=== PATIENT | female | born 1945 | race Caucasian/White ===

== ENCOUNTER 2018-02-18 08:15 | Day surgery (SDC) | payer MEDICARE ==
[2018-02-15 12:20] VITALS: BMI 25.9
[2018-02-18 08:30] VITALS: TEMP 98.3
[2018-02-18] MEDS ORDERED: FLURBIPROFEN 0.03% OPHTH SOLN 2.5 ML BOTTLE ONE (09:30)
[2018-02-18] MEDS ORDERED: FLURBIPROFEN 0.03% OPHTH SOLN 2.5 ML BOTTLE OS ONE ×3 (09:40→09:50)
[2018-02-18] MEDS ORDERED: FLURBIPROFEN 0.03% OPHTH SOLN 2.5 ML BOTTLE OS SCH (10:00)
[2018-02-18] MEDS ORDERED: MIDAZOLAM HCL 2 MG/2 ML SINGLE DOSE VIAL ONE (10:16)
[2018-02-18] MEDS ORDERED: TETRACAINE 0.5% OPHTH SOLN 2 ML BOTTLE OS ONE (10:40)
[2018-02-18] MEDS ORDERED: NEO/POLYMYX B SULF/DEXAMETH OPHTHALMIC OINTMENT 3.5 GM ONE (10:47)
[2018-02-18] MEDS ORDERED: LIDOCAINE HCL/PF 1% SDV 5ML VIAL ONE (10:47)
[2018-02-18] MEDS ORDERED: BSS (NA/CA/MG/K) BALANCED SALT SOLUTION OPHTH SOLN 15 ML BOTTLE ONE (10:47)
[2018-02-18] MEDS ORDERED: POVIDONE-IODINE 5% OPHTHALMIC PREP 30 ML SOLUTION OS ONE (11:09)
[2018-02-18] MEDS ORDERED: LIDOCAINE 1%/EPI 1:100000 (20 ML MULTI DOSE VIAL) IJ ONE (11:15)
[2018-02-18] MEDS ORDERED: BSS (NA/CA/MG/K) BALANCED SALT SOLUTION OPHTH SOLN 15 ML BOTTLE OS ONE (11:15)
[2018-02-18 12:56] VITALS: BP 114/84; PULSE 50
--- NOTE | 2018-02-18 13:24 | OP ---
DATE OF OPERATION: 02/18/2018 SURGEON: Myrna Calles MD ANESTHESIA: Local. PROCEDURE: Pterygium excision, left eye, nasal side with AmnioGraft using Tisseel glue. ANESTHESIA: Local. PREOPERATIVE DIAGNOSIS: Pterygium. DESCRIPTION OF PROCEDURE: The left eye was prepped and draped in the usual sterile fashion for ophthalmic surgery, and tetracycline eye drops were placed in the eye. The microscope was swung into position, and the pterygium head and body was marked with a surface marker. Careful dissection at the head of the pterygium from the cornea was done with a 57 blade, and excision of the body was done with the scissors. The specimen was sent for histopathology. Hemostasis was achieved after smoothing the surface of the cornea with a jayson blade. The measurements of other sclerae were 6 mm x 5 mm, and at this size, the AmnioGraft was carefully excised and placed on the sclerae using Tisseel glue. The graft was found to be in situ, and Tobradex eye ointment was placed on the conjunctivae, and the eye was patched and shielded. The patient was transferred to the recovery room in a stable condition having tolerated the procedure well. MYRNA CALLES M.D. /[id number]
--- NOTE | 2018-02-19 15:52 | PATH ---
Surgical Pathology Report Patient Name: AYSHA EL [facility]. Rec. #: [id number] /Age/Gender: 1945 (Age: 72) / F Account: [id number] Location: [facility] SURGICAL Taken: 02/18/2018 Received: 02/18/2018 Reported: 02/19/2018 Physicians: Naila Ware M.D. Specimen(s) Received LEFT EYE PTERYGIUM Clinical History Left eye pterygium Final Diagnosis LEFT EYE, PTERYGIUM, EXCISION: CONSISTENT WITH PTERYGIUM. Electronically Signed Cristina Acharya M.D. Gross Description Received in formalin, labeled "left eye pterygium" is a benítez, irregular portion of soft tissue measuring 0.2 cm. in greatest dimension. The specimen is submitted in toto in one cassette. /02/18/201802/18/2018
== END 2018-02-18 13:05 | disposition home or self-care (01) ==
LOC: JASU-SURG 08:15
PROVIDERS: ATTEND Ophthalmology
PROC: 08U107Z Supplement of Left Eye with Autologous Tissue Substitute, Open Approach (ICD-10-PCS; principal; 2018-02-18 10:00)
DX: H11.002 Unspecified pterygium of left eye (principal)
CPT/HCPCS: 88304-TC

== ENCOUNTER 2024-08-01 03:13 | Inpatient (IN) | payer MEDICARE, OTHER ==
[2024-08-01] MEDS ORDERED: dilTIAZem HCL 125 MG/25 ML - 25 ML VIAL ONE (03:56)
[2024-08-01] MEDS: dilTIAZem HCL 50 MG/10 ML - 10 ML VIAL IVPUSH ONE (04:01)
[2024-08-01] MEDS: SODIUM CHLORIDE 0.9% 500 ML INFUS.BAG IV ONE (04:01)
[2024-08-01 04:38] LABS: INR 0.99 (0.83-1.09); PROTHROMBIN TIME (PATIENT) 11.2 SEC (9.7-13.0)
[2024-08-01 04:41] LABS: ACTIVATED PTT 27.9 SECONDS (25.2-36.5)
[2024-08-01 04:50] LABS: POTASSIUM 4.7 mmol/L (3.5-5.1)
[2024-08-01 04:52] LABS: CALCIUM 9.2 mg/dL (8.5-10.1)
[2024-08-01 04:53] LABS: ALBUMIN 3.6 g/dl (3.4-5.0); BLOOD UREA NITROGEN 26.1 mg/dL (7-18); MAGNESIUM 2.1 mg/dL (1.8-2.4)
[2024-08-01 04:56] LABS: CREATININE 1.1 mg/dL (0.55-1.3); PHOSPHOROUS 3.5 mg/dL (2.5-4.9)
[2024-08-01 04:58] LABS: BILIRUBIN,TOTAL 0.4 mg/dL (0.2-1); TOT PROT 6.9 g/dl (6.4-8.2)
[2024-08-01 04:59] LABS: N-TERMINAL BNP 183.8 pg/ml (5-450)
[2024-08-01] MEDS: dilTIAZem HCL 30 MG TABLET PO ONE (05:06)
[2024-08-01 05:52] LABS: BASO % 0.2 % (0-2.0); HEMATOCRIT 36.7 % (32.4-45.2); HEMOGLOBIN 12.5 GM/dL (10.7-15.3); LYMPH % 10.7 % (8-40); MCH 32.6 pg (25.7-33.7); MCHC 34.2 g/dl (32.0-36.0); MEAN CELL VOLUME 95.3 fl (80-96); MONO % 6.7 % (3.8-10.2); NEUT % 82.4 % (42.8-82.8); PLATELET COUNT 356 10^3/uL (134-434); RBC 3.85 M/mm3 (3.60-5.2); RDW 12.2 % (11.6-15.6); WHITE BLOOD COUNT 9.6 K/mm3 (4.0-10.0)
[2024-08-01] MEDS ORDERED: LEVOTHYROXINE NA 25 MCG TABLET (FP) ONE (07:10)
[2024-08-01] MEDS: INSULIN ASPART SLIDING SCALE (NOVOLOG) 1 VIAL SQ SCH (07:12)
[2024-08-01] MEDS: LEVOTHYROXINE NA 25 MCG TABLET (FP) PO SCH (07:16)
[2024-08-01 07:42] LABS: POTASSIUM 4.7 mmol/L (3.5-5.1)
[2024-08-01 07:44] LABS: CALCIUM 8.3 mg/dL (8.5-10.1)
[2024-08-01 07:45] LABS: ALBUMIN 3.4 g/dl (3.4-5.0); BLOOD UREA NITROGEN 24.8 mg/dL (7-18); MAGNESIUM 1.9 mg/dL (1.8-2.4)
[2024-08-01 07:48] LABS: CREATININE 0.9 mg/dL (0.55-1.3); HEMATOCRIT 38.3 % (32.4-45.2); MEAN CELL VOLUME 97.1 fl (80-96); MEAN PLT VOLUME 8.3 fl (7.5-11.1); PHOSPHOROUS 3.1 mg/dL (2.5-4.9); PLATELET COUNT 262 10^3/uL (134-434); RBC 3.95 M/mm3 (3.60-5.2); RDW 12.3 % (11.6-15.6); WHITE BLOOD COUNT 9.4 K/mm3 (4.0-10.0)
[2024-08-01 07:50] LABS: BILIRUBIN,TOTAL 0.5 mg/dL (0.2-1); TOT PROT 6.5 g/dl (6.4-8.2)
[2024-08-01] MEDS ORDERED: METOPROLOL TARTRATE 25 MG TABLET (FP) ONE (08:54)
[2024-08-01] MEDS: METOPROLOL TARTRATE 25 MG TABLET (FP) PO SCH (09:01)
[2024-08-01] MEDS ORDERED: METOPROLOL TARTRATE 50 MG TABLET (FP) PO SCH (10:00)
[2024-08-01] MEDS: APIXABAN 5 MG TABLET PO SCH (11:22)
[2024-08-01] MEDS: METOPROLOL TARTRATE 50 MG TABLET (FP) PO SCH (14:16)
[2024-08-01 16:09] VITALS: BMI 25.6
[2024-08-01] MEDS: FLU VACCINE (FLULAVAL) PF 45 MCG/0.5 ML SYRINGE 2024-2025 IM ONE (19:24)
[2024-08-01] MEDS: ATORVASTATIN CA 10 MG TABLET (FP) PO SCH (21:55)
[2024-08-01 22:52] VITALS: RESP 18
[2024-08-02 07:44] LABS: HEMATOCRIT 37.3 % (32.4-45.2); HEMOGLOBIN 12.1 GM/dL (10.7-15.3); MCH 31.9 pg (25.7-33.7); MCHC 32.4 g/dl (32.0-36.0); MEAN CELL VOLUME 98.5 fl (80-96); MEAN PLT VOLUME 8.3 fl (7.5-11.1); PLATELET COUNT 333 10^3/uL (134-434); RBC 3.78 M/mm3 (3.60-5.2); RDW 12.3 % (11.6-15.6); WHITE BLOOD COUNT 8.1 K/mm3 (4.0-10.0)
[2024-08-02 07:59] LABS: POTASSIUM 4.7 mmol/L (3.5-5.1)
[2024-08-02 08:01] LABS: CALCIUM 9.2 mg/dL (8.5-10.1)
[2024-08-02 08:02] LABS: BLOOD UREA NITROGEN 32.8 mg/dL (7-18); MAGNESIUM 2.1 mg/dL (1.8-2.4)
[2024-08-02 08:04] LABS: PHOSPHOROUS 3.4 mg/dL (2.5-4.9)
[2024-08-02 13:25] VITALS: BP 108/72; PULSE 76; TEMP 98.6
== END 2024-08-02 14:30 | disposition home or self-care (01) | DRG 310 ==
LOC: JER 03:13 → JERBED 05:00 → J4W 11:07
PROVIDERS: ADMIT Internal Medicine; ATTEND Nurse Practitioner Family
DX: I48.91 Unspecified atrial fibrillation (principal); E03.9 Hypothyroidism, unspecified; E11.9 Type 2 diabetes mellitus without complications; E78.5 Hyperlipidemia, unspecified; I10 Essential (primary) hypertension; R00.2 Palpitations
CPT/HCPCS: 36415; 71046-TC-FY; 72100-TC-FY; 80048; 80053; 82962; 83036; 83735; 83880; 84100; 84439; 84443; 84484; 85025; 85027; 85610; 85730; 87086; 93005; 93010; 93306-TC; 99285-25